=== PATIENT | male | born 2005 | race Caucasian/White ===

== ENCOUNTER 2024-06-15 21:40 | Emergency (ER) | payer BC ==
[~2024-06-15] VITALS: Ht 170.1 cm; Wt 65.8 kg
[2024-06-15] MEDS ORDERED: Ondansetron Hydrochloride 4 MG TAB SL ONE (22:15)
[2024-06-16] MEDS ORDERED: Ketorolac Tromethamine 30 MG/ML VIAL IM ONE (00:20)
[2024-06-16] MEDS ORDERED: Ondansetron4 MG PO (00:24)
== END 2024-06-16 00:35 | disposition home or self-care (01) ==
LOC: ED 21:40
DX: B34.9 Viral infection, unspecified (principal); Z20.822 Contact with and (suspected) exposure to COVID-19